=== PATIENT | male | born 1980 | race Caucasian/White ===

== ENCOUNTER 2021-09-19 21:43 | Emergency (ER) | payer OTHER ==
[2021-09-19] MEDS ORDERED: Sodium Chloride 0.9% 1,000 ML IV ONE (22:14)
[2021-09-19] MEDS ORDERED: Ondansetron 4 MG/2 ML SDV IVPUSH ONE (22:38)
[2021-09-19 23:00] LABS: ANION GAP 21.8 mEq/L (7-13)
[2021-09-20 01:08] LABS: AMPHETAMINES,URINE NEGATIVE (NEGATIVE); BARBITURATES,URINE NEGATIVE (NEGATIVE); BENZODIAZEPINE,URINE NEGATIVE (NEGATIVE); MDMA (ECSTASY), URINE NEGATIVE (NEGATIVE); METHADONE,URINE NEGATIVE (NEGATIVE); METHAMPHETAMINES,URINE NEGATIVE (NEGATIVE); OPIATES,URINE NEGATIVE (NEGATIVE); OXYCODONE,URINE NEGATIVE (NEGATIVE); PHENCYCLIDINE,URINE NEGATIVE (NEGATIVE); TCA,URINE NEGATIVE (NEGATIVE)
== END 2021-09-20 01:19 | disposition home or self-care (01) ==
LOC: DL.ED 21:43
DX: T50.901A Poisoning by unspecified drugs, medicaments and biological substances, accidental (unintentional), initial encounter (principal); J44.9 Chronic obstructive pulmonary disease, unspecified; I10 Essential (primary) hypertension; F17.210 Nicotine dependence, cigarettes, uncomplicated; Z88.3 Allergy status to other anti-infective agents
CPT/HCPCS: 36415; 80053; 80305; 80307; 83605; 84484; 85025; 93005; 96374; 99284; J2405; J7030

== ENCOUNTER 2022-04-08 20:34 | Emergency (ER) | payer OTHER ==
[2022-04-08 20:59] LABS: PTT,PARTIAL THROMBOPLSTIN TIME 21.6 SEC (22.0-34.0)
[2022-04-08 21:09] LABS: ANION GAP 12.2 mEq/L (7-13)
[2022-04-08 21:27] LABS: AMPHETAMINES,URINE NEGATIVE (NEGATIVE); BARBITURATES,URINE NEGATIVE (NEGATIVE); BENZODIAZEPINE,URINE NEGATIVE (NEGATIVE); MDMA (ECSTASY), URINE NEGATIVE (NEGATIVE); METHADONE,URINE NEGATIVE (NEGATIVE); METHAMPHETAMINES,URINE NEGATIVE (NEGATIVE); OPIATES,URINE NEGATIVE (NEGATIVE); OXYCODONE,URINE NEGATIVE (NEGATIVE); PHENCYCLIDINE,URINE NEGATIVE (NEGATIVE); TCA,URINE POSITIVE (NEGATIVE)
== END 2022-04-08 23:15 | disposition home or self-care (01) ==
LOC: DL.ED 20:34
DX: R55 Syncope and collapse (principal); I10 Essential (primary) hypertension; J44.9 Chronic obstructive pulmonary disease, unspecified; Z88.1 Allergy status to other antibiotic agents; Z79.899 Other long term (current) drug therapy
CPT/HCPCS: 36415; 71045; 80053; 80305-QW; 82150; 83690; 83735; 84443; 84484; 85025; 85610; 85730; 93005; 93010; 99284; 99285

== ENCOUNTER 2023-11-24 06:00 | Emergency (ER) | payer OTHER ==
[2023-11-24] MEDS ORDERED: Proparacaine 0.5% Ophth Soln 15 ML Bottle ONE (06:10)
[2023-11-24] MEDS: Fluorescein 1 MG Ophth Strip ONE (06:14)
[2023-11-24] MEDS: Fluorescein 1 MG Ophth Strip EYEBOTH ONE (06:14)
[2023-11-24] MEDS: Proparacaine 0.5% Ophth Soln 15 ML Bottle EYEBOTH ONE (06:18)
[2023-11-24] MEDS: Take Home: Acetaminophen/HYDROcodone 325-5 MG, 5 Tab Pack PO ONE (06:33)
[2023-11-24] MEDS: Sulfacetamide 10% Ophth Soln 15 ML Bottle EYEBOTH ONE (06:33)
== END 2023-11-24 06:40 | disposition home or self-care (01) ==
LOC: DL.ED 06:00
DX: H16.133 Photokeratitis, bilateral (principal); I10 Essential (primary) hypertension; J44.9 Chronic obstructive pulmonary disease, unspecified; Z79.899 Other long term (current) drug therapy; Z88.8 Allergy status to other drugs, medicaments and biological substances
CPT/HCPCS: 99283; A9270; J3490

== ENCOUNTER 2024-08-30 18:10 | Emergency (ER) | payer OTHER ==
[2024-08-30] MEDS ORDERED: Sodium Chloride 0.9% 10 ML Syringe FLUSH PRN (18:22)
[2024-08-30 18:31] LABS: BASOPHILS PERCENT AUTO 0.4 % (0.0-1.0); HEMOGLOBIN 15.6 g/dL (14.0-18.0); MEAN CORPUSCULAR HEMOGLOBIN 29.8 pg (27.0-34.0); MEAN CORPUSCULAR HGB CONC 34.7 g/dL (33.0-35.0); MEAN CORPUSCULAR VOLUME 85.9 fL (80-100); MONOCYTES PERCENT AUTO 9.1 % (2-8); NEUTROPHILS PERCENT AUTO 57.5 % (42.2-75.2); PLATELET COUNT,PLT 223 10^3/uL (150-450); RED BLOOD CELL COUNT 5.24 10^6/uL (4.6-6.2); WHITE BLOOD CELL COUNT,WBC 12.2 10^3/uL (5.0-10.0)
[2024-08-30] MEDS ORDERED: Magnesium Sulfate 2 GM/50 mL 2 GM in Premix Bag 1 BAG IV ONE (18:38)
[2024-08-30 18:57] LABS: A/G RATIO 1.6; ALBUMIN 4.5 g/dL (3.4-5.0); BILIRUBIN TOTAL 0.7 mg/dL (0.2-1.0); CALCIUM 9.6 mg/dL (8.5-10.1); CREATININE 1.69 mg/dL (0.70-1.30); EST CRCL DRUG DOSING (CG) 61.22 mL/min; MAGNESIUM 1.8 mg/dL (1.8-2.4); PROTEIN TOTAL,TP 7.4 g/dL (6.4-8.2); T4 FREE 0.69 ng/dL (0.76-1.46); TSH ULTRASENSITIVE 2.89 uIU/mL (0.36-3.74)
[2024-08-30] MEDS: Magnesium Sulfate 2 GM/50 mL 2 GM in Premix Bag 1 BAG IV ONE (19:11)
[2024-08-30] MEDS: Sodium Chloride 0.9% 1,000 ML IV ONE ×2 (19:12→20:02)
== END 2024-08-30 20:43 | disposition home or self-care (01) ==
LOC: DL.ED 18:10
DX: I49.3 Ventricular premature depolarization (principal); N17.9 Acute kidney failure, unspecified; I10 Essential (primary) hypertension; J44.9 Chronic obstructive pulmonary disease, unspecified; Z88.8 Allergy status to other drugs, medicaments and biological substances; Z79.899 Other long term (current) drug therapy
CPT/HCPCS: 36415; 80053; 83735; 84439; 84443; 84484; 85025; 93005; 93010; 96365; 99284; 99285-25; J3475; J7030

== ENCOUNTER 2024-11-10 08:24 | Emergency (ER) | payer OTHER | END 2024-11-10 09:00 | disposition home or self-care (01) | LOC: DL.ED 08:24 | DX: T16.1XXA Foreign body in right ear, initial encounter (principal); I10 Essential (primary) hypertension; J44.9 Chronic obstructive pulmonary disease, unspecified; Z79.899 Other long term (current) drug therapy; Z88.8 Allergy status to other drugs, medicaments and biological substances | CPT/HCPCS: 69200; 99282-25 ==